=== PATIENT | female | born 1940 | race Caucasian/White ===

== ENCOUNTER 2022-06-24 10:19 | Outpatient (CLI) | payer MEDICARE, OTHER, SELFPAY | END 2022-06-24 10:20 | disposition home or self-care (01) | PROVIDERS: PCP Family Medicine; Visit Provider Family Medicine | DX: M51.36 Other intervertebral disc degeneration, lumbar region (principal); M54.16 Radiculopathy, lumbar region | CPT/HCPCS: 64483; J1100; Q9966 ==

== ENCOUNTER 2022-06-30 14:24 | Outpatient (REF) | payer MEDICARE, OTHER, SELFPAY ==
[2022-06-30 14:52] LABS: INR 1.51 (0.91-1.10)
== END 2022-06-30 14:25 | disposition home or self-care (01) ==
LOC: NPINS 14:24
PROVIDERS: PCP Family Medicine; Visit Provider Family Medicine
DX: I48.91 Unspecified atrial fibrillation (principal)
CPT/HCPCS: 36415; 85610

== ENCOUNTER 2022-07-14 12:18 | Outpatient (REF) | payer MEDICARE, OTHER, SELFPAY ==
[2022-07-14 13:20] LABS: INR 2.38 (0.91-1.10); Prothrombin Time 27.1 Seconds
== END 2022-07-14 12:19 | disposition home or self-care (01) ==
LOC: NPINS 12:18
PROVIDERS: PCP Family Medicine; Visit Provider Family Medicine
DX: I48.91 Unspecified atrial fibrillation (principal)
CPT/HCPCS: 85610

== ENCOUNTER 2022-07-28 15:36 | Outpatient (REF) | payer MEDICARE, OTHER, SELFPAY ==
[2022-07-28 16:08] LABS: INR 2.77 (0.91-1.10); Prothrombin Time 30.6 Seconds
== END 2022-07-28 15:37 | disposition home or self-care (01) ==
LOC: LAB 15:36
PROVIDERS: PCP Family Medicine; Visit Provider Family Medicine
DX: I48.91 Unspecified atrial fibrillation (principal)
CPT/HCPCS: 36415; 85610

== ENCOUNTER 2022-09-15 14:51 | Outpatient (REF) | payer MEDICARE, OTHER, SELFPAY ==
[2022-09-15 15:58] LABS: INR 1.94 (0.91-1.10); Prothrombin Time 23.2 Seconds
== END 2022-09-15 14:52 | disposition home or self-care (01) ==
LOC: NPINS 14:51
PROVIDERS: PCP Family Medicine; Visit Provider Family Medicine
DX: I48.91 Unspecified atrial fibrillation (principal)
CPT/HCPCS: 85610

== ENCOUNTER 2023-07-28 09:53 | Outpatient (CLI) | payer MEDICARE, OTHER, SELFPAY | END 2023-07-28 09:54 | disposition home or self-care (01) | PROVIDERS: PCP Family Medicine; Visit Provider Family Medicine | DX: M51.36 Other intervertebral disc degeneration, lumbar region (principal); M54.16 Radiculopathy, lumbar region | CPT/HCPCS: 62323; J0702; Q9966 ==

== ENCOUNTER 2023-11-05 15:34 | Outpatient (REF) | payer MEDICARE, OTHER, SELFPAY ==
[2023-11-05 16:01] LABS: Basophils Absolute Auto 0.02 K/uL (0.00-0.30); Basophils Percent Auto 0.3 % (0.0-3.0); Eosinophils Percent Auto 1.6 % (0.0-7.0); Hematocrit 32.5 % (33.0-51.0); Hemoglobin* 10.2 gm/dL (12.0-16.0); Immature Granulocytes Abs Auto 0.02 K/uL (0.00-0.30); Immature Granulocytes Pct Auto 0.3 %; Lymphocytes Percent Auto 8.3 % (20-44); Mean Corpuscular HGB Conc 31 gm/dL (32-36); Mean Corpuscular Hemoglobin 30 pg (26-34); Mean Corpuscular Volume 95 fL (80-100); Monocytes Percent Auto 6.8 % (0.0-11.0); Neutrophils Percent Auto 82.7 % (42.0-72.0); Platelet Count* 176 K/uL (140-440); Red Blood Count 3.44 m/uL (4.00-5.20)
[2023-11-05 16:09] LABS: Slide Review Reflex No
[2023-11-05 16:20] LABS: Chloride* 96 mmol/L (96-114)
[2023-11-05 16:21] LABS: Potassium* 4.4 mmol/L (3.6-5.1); Sodium* 134 mmol/L (135-149)
[2023-11-05 16:23] LABS: Estimated Glomerular Filt Rate 56 ml/min
[2023-11-05 16:24] LABS: Anion Gap 5 mEq/L (7-15); Blood Urea Nitrogen* 24 mg/dL (7-30); Calcium* 9.1 mg/dL (8.4-10.6); Carbon Dioxide* 33 mmol/L (20-32); Glucose* 201 mg/dL (60-115)
== END 2023-11-05 15:35 | disposition home or self-care (01) ==
LOC: NPINS 15:34
PROVIDERS: PCP Family Medicine; Visit Provider Family Medicine
DX: N17.9 Acute kidney failure, unspecified (principal); J44.9 Chronic obstructive pulmonary disease, unspecified
CPT/HCPCS: 80048; 85025